=== PATIENT | female | born 1975 | race Caucasian/White ===

== ENCOUNTER 2018-06-03 19:55 | Inpatient (IN) | payer SELFPAY ==
[~2018-06-03] VITALS: Ht 152.4 cm; Wt 75.8 kg
[2018-06-03 20:26] LABS: BASOPHILS % (AUTO) 0.6 % (0.0-2.0); EOSINOPHILS % (AUTO) 2.6 % (1.0-6.0); HEMATOCRIT 39.6 % (36-46); HEMOGLOBIN 13.6 g/dL (12.0-16.0); LYMPHOCYTES # (AUTO) 2.3 K/uL (1.0-4.8); LYMPHOCYTES % (AUTO) 26.3 % (22.0-44.0); MEAN CORPUSCULAR HGB CONC 34.4 G/dL (31.0-37.0); MEAN CORPUSCULAR VOLUME 87 fL (80-100); MONOCYTES # (AUTO) 0.9 K/uL (0.1-1.0); MONOCYTES % (AUTO) 9.9 % (2.0-9.0); NEUTROPHILS # (AUTO) 5.3 K/uL (1.8-7.7); NEUTROPHILS % (AUTO) 60.6 % (40.0-70.0); PLATELET COUNT (AUTO) 321 K/uL (150-450); RED BLOOD CELL COUNT(AUTO) 4.55 MIL/uL (4.00-5.20); RED CELL DISTRIBUTION WIDTH 13.2 % (11.5-14.5)
[2018-06-03 20:43] LABS: ANION GAP 8 mmol/L (8-16); CARBON DIOXIDE 28 mmol/L (22-29); CHLORIDE 103 mmol/L (98-107); CREATININE 0.81 mg/dL (0.60-1.30); GLOMERULAR FILTR. RATE CALC > 60 mL/min (>60); GLUCOSE,RANDOM 94 mg/dL (70-110); POTASSIUM 3.9 mmol/L (3.5-5.1); SODIUM SERUM 139 mmol/L (136-145); UREA NITROGEN, BLOOD 20 mg/dL (7-18)
[2018-06-03 20:48] LABS: ALANINE AMINOTRANSFERASE 20 U/L (12-78); ALBUMIN 3.5 g/dL (3.4-5.0); ALKALINE PHOSPHATASE 105 U/L (46-116); ASPARTATE AMINOTRANSFERASE 17 U/L (15-37); BILIRUBIN,TOTAL 0.3 mg/dL (0.1-1.0); TOTAL PROTEIN, SERUM 7.6 g/dL (6.4-8.2)
[2018-06-03] MEDS ORDERED: ZOLPIDEM TARTRATE 10 MG TABLET PO PRN (23:00)
[2018-06-03] MEDS ORDERED: LORazepam 1 MG TABLET PO PRN (23:00)
[2018-06-03] MEDS ORDERED: HALOPERIDOL 5 MG TABLET PO PRN (23:00)
[2018-06-03 23:03] LABS: AMPHET/METH SCREEN,URINE POSITIVE (NEGATIVE); BARBITURATE SCREEN, URINE NEGATIVE (NEGATIVE); BENZODIAZEPINES SCREEN,URINE NEGATIVE (NEGATIVE); CANNABINOID SCREEN,URINE POSITIVE (NEGATIVE); COCAINE SCREEN,URINE NEGATIVE (NEGATIVE); METHADONE SCREEN, URINE NEGATIVE (NEGATIVE); OPIATE SCREEN,URINE NEGATIVE (NEGATIVE)
[2018-06-03 23:06] LABS: PHENCYCLIDINE SCREEN,URINE NEGATIVE (NEGATIVE)
[2018-06-03 23:08] LABS: HCG,QUANTITATIVE < 1 mIU/mL (0-6)
[2018-06-03 23:31] LABS: CHOL/HDL RATIO 2.9 (3.9-5.7); CHOLESTEROL 159 mg/dL (131-200); FREE T4 (FREE THYROXINE) 1.04 ng/dL (0.76-1.46); HDL CHOLESTEROL 54 mg/dL (40-60); LDL CHOL (CALC.) 92 mg/dL (0-130); THYROID STIMULATING HORMONE 1.47 uIU/mL (0.36-3.74); TRIGLYCERIDES 64 mg/dL (15-150)
[2018-06-04] VITALS (9 sets, daily range): BP systolic 97–138; BP diastolic 64–92
[2018-06-04] MEDS ORDERED: LOPERAMIDE HCL 2 MG CAPSULE PO PRN (06:45)
[2018-06-04] MEDS ORDERED: DOCUSATE SODIUM 100 MG CAPSULE PO PRN (06:45)
[2018-06-04] MEDS ORDERED: NICOTINE 14 MG/24 HOUR PATCH TD PRN (06:45)
[2018-06-04] MEDS ORDERED: IBUPROFEN 400 MG TABLET PO PRN (06:45)
[2018-06-04] MEDS ORDERED: CloNIDine HCL 0.1 MG TABLET PO PRN (06:45)
[2018-06-04] MEDS ORDERED: MAG HYDROX/AL HYDROX/SIMETH ES 30 ML SUSPENSION UDCUP PO PRN (06:45)
[2018-06-04] MEDS ORDERED: ACETAMINOPHEN 325 MG TABLET PO PRN (06:45)
[2018-06-04] MEDS ORDERED: ONDANSETRON HCL 4 MG TABLET PO PRN (06:45)
[2018-06-04] MEDS ORDERED: ALBUTEROL SULFATE HFA 90 MCG/PUFF 8 GM INHALER IH PRN (06:45)
[2018-06-04] MEDS ORDERED: PETROLATUM,WHITE 71 GM JELLY TP PRN (06:45)
[2018-06-04] MEDS ORDERED: GuaiFENesin/D-METHORPHAN [SUGAR-FREE] 200-20MG/10 ML SYRUP UDCUP PO PRN (06:45)
[2018-06-04] MEDS ORDERED: MAGNESIUM HYDROXIDE SUSPENSION 30 ML UDCUP PO PRN (06:45)
[2018-06-04] MEDS: SERTRALINE HCL 50 MG TABLET PO SCH (10:15)
[2018-06-05 00:05] VITALS: BP 120/75
[2018-06-05 04:05] VITALS: BP 127/76
[2018-06-05 06:47] LABS: BASOPHILS % (AUTO) 0.5 % (0.0-2.0); EOSINOPHILS % (AUTO) 3.1 % (1.0-6.0); HEMATOCRIT 40.3 % (36-46); HEMOGLOBIN 13.7 g/dL (12.0-16.0); LYMPHOCYTES # (AUTO) 1.5 K/uL (1.0-4.8); LYMPHOCYTES % (AUTO) 23.3 % (22.0-44.0); MEAN CORPUSCULAR VOLUME 88 fL (80-100); MONOCYTES # (AUTO) 0.6 K/uL (0.1-1.0); MONOCYTES % (AUTO) 8.3 % (2.0-9.0); NEUTROPHILS # (AUTO) 4.3 K/uL (1.8-7.7); NEUTROPHILS % (AUTO) 64.8 % (40.0-70.0); PLATELET COUNT (AUTO) 300 K/uL (150-450); RED BLOOD CELL COUNT(AUTO) 4.57 MIL/uL (4.00-5.20)
[2018-06-05 07:00] LABS: HEMOGLOBIN A1C 5.4 % (4.5-6.2)
[2018-06-05 07:17] LABS: ALANINE AMINOTRANSFERASE 17 U/L (12-78); ALBUMIN 3.1 g/dL (3.4-5.0); ALKALINE PHOSPHATASE 93 U/L (46-116); ANION GAP 8 mmol/L (8-16); ASPARTATE AMINOTRANSFERASE 14 U/L (15-37); BILIRUBIN,TOTAL 0.5 mg/dL (0.1-1.0); CALCIUM, TOTAL 8.5 mg/dL (8.8-10.5); CARBON DIOXIDE 26 mmol/L (22-29); CHLORIDE 106 mmol/L (98-107); CHOL/HDL RATIO 3.5 (3.9-5.7); CHOLESTEROL 146 mg/dL (131-200); CREATININE 0.64 mg/dL (0.60-1.30); GLOMERULAR FILTR. RATE CALC > 60 mL/min (>60); GLUCOSE,RANDOM 89 mg/dL (70-110); HDL CHOLESTEROL 42 mg/dL (40-60); LDL CHOL (CALC.) 89 mg/dL (0-130); POTASSIUM 4.1 mmol/L (3.5-5.1); SODIUM SERUM 140 mmol/L (136-145); THYROID STIMULATING HORMONE 0.96 uIU/mL (0.36-3.74); TOTAL PROTEIN, SERUM 6.7 g/dL (6.4-8.2); TRIGLYCERIDES 77 mg/dL (15-150); UREA NITROGEN, BLOOD 18 mg/dL (7-18)
[2018-06-05] MEDS: SERTRALINE HCL 50 MG TABLET PO SCH (09:16)
[2018-06-05 10:17] VITALS: BP 125/91
[2018-06-05] MEDS ORDERED: SERT50TA12 PO (13:57)
== END 2018-06-05 11:40 | disposition home or self-care (01) | DRG 881 ==
LOC: EMS 19:57 → 3EI 23:30
PROVIDERS: ADMIT Psychiatry & Neurology Child & Adolescent Psychiatry; ATTEND Psychiatry & Neurology Child & Adolescent Psychiatry
DX: F32.9 Major depressive disorder, single episode, unspecified (principal); R45.851 Suicidal ideations; F15.90 Other stimulant use, unspecified, uncomplicated; G47.00 Insomnia, unspecified; F41.9 Anxiety disorder, unspecified
CPT/HCPCS: 83036; 84439; 84443; G0480

== ENCOUNTER 2019-03-28 18:18 | Emergency (ER) | payer MEDICAID ==
[~2019-03-28] VITALS: Ht 152.4 cm; Wt 75.0 kg
[~2019-03-28 18:18] MED LIST: SERT50TA12 PO
[2019-03-28] MEDS ORDERED: NEOMYCIN/POLYMYXIN B/HYDROCORT 10 ML OTIC SOLUTION AD ONE (19:15)
[2019-03-28 19:38] VITALS: BP 137/98
== END 2019-03-28 19:43 | disposition home or self-care (01) ==
LOC: EMS 18:20
DX: H60.91 Unspecified otitis externa, right ear (principal); F15.90 Other stimulant use, unspecified, uncomplicated

== ENCOUNTER 2019-04-09 13:00 | Emergency (ER) | payer MEDICAID | END 2019-04-09 13:52 | disposition left against medical advice (07) | LOC: EMS 13:03 | DX: R42 Dizziness and giddiness (principal); Z53.21 Procedure and treatment not carried out due to patient leaving prior to being seen by health care provider ==

== ENCOUNTER 2019-04-09 14:15 | Emergency (ER) | payer MEDICAID ==
[~2019-04-09] VITALS: Ht 154.9 cm; Wt 81.8 kg
[2019-04-09] MEDS ORDERED: ACETAMINOPHEN 500 MG TABLET PO ONE (15:30)
[2019-04-09] MEDS ORDERED: KETOROLAC TROMETHAMINE 30 MG/ML VIAL IVP ONE (18:45)
[2019-04-09] MEDS ORDERED: METOCLOPRAMIDE HCL 5 MG/ML 2 ML VIAL IVP ONE (18:45)
[2019-04-09] MEDS ORDERED: SODIUM CHLORIDE 0.9% 1,000 ML IV ONE (18:45)
[2019-04-09 19:00] VITALS: BP 135/71
== END 2019-04-09 19:12 | disposition home or self-care (01) ==
LOC: EMS 14:18
DX: S16.1XXA Strain of muscle, fascia and tendon at neck level, initial encounter (principal); F19.90 Other psychoactive substance use, unspecified, uncomplicated; W50.0XXA Accidental hit or strike by another person, initial encounter; Y93.89 Activity, other specified; Y92.89 Other specified places as the place of occurrence of the external cause; Y99.8 Other external cause status
CPT/HCPCS: 72040